=== PATIENT | male | born 1985 | race African-American/Black ===

== ENCOUNTER 2017-09-06 22:05 | Emergency (ER) | payer OTHER ==
[~2017-09-06] VITALS: Ht 180.3 cm; Wt 86.0 kg
[2017-09-07 01:00] LABS: HEMATOCRIT. 47.5 % (42.0-52.0); HEMOGLOBIN. 16.4 g/dL (14.0-18.0); MEAN CORPUSCULAR HEMOGLOBIN 30.3 pg (28.0-32.0); MEAN CORPUSCULAR VOLUME 87.8 fL (80.0-94.0); MEAN PLATELET VOLUME 8.1 fl (7.4-10.4); PLATELET 219 x1000/uL (130-400); RED BLOOD CELL COUNT 5.41 mill/uL (4.7-6.1); RED CELL DISTRIBUTION WIDTH 14.6 % (11.6-14.6)
[2017-09-07 01:00] LABS: CLARITY URINE CLEAR (CLEAR); COLOR URINE YELLOW (YELLOW); KETONES URINE NEGATIVE (NEGATIVE); LEUKOCYTE ESTERASE URINE NEGATIVE (NEGATIVE); NITRITE URINE NEGATIVE (NEGATIVE); OCCULT BLOOD URINE NEGATIVE (NEGATIVE); PROTEIN URINE NEGATIVE (NEGATIVE); SPECIFIC GRAVITY URINE 1.016 (1.005-1.030); UROBILINOGEN URINE 0.2 E.U./dL (0.2-1.0)
[2017-09-07 01:05] LABS: CHLORIDE 103 mEq/L (98-107)
[2017-09-07 01:21] LABS: PLATELET ESTIMATE NORMAL
[2017-09-07] MEDS ORDERED: SODIUM CHLORIDE 0.9% 1,000 ML IV ONE (03:48)
[2017-09-07] MEDS ORDERED: KETOROLAC 60MG/2ML VIAL IM STA (03:48)
[2017-09-07] MEDS ORDERED: KETOROLAC 30MG/ML VIAL IV STA (04:31)
[2017-09-07 04:35] VITALS: BP 125/82
== END 2017-09-07 05:33 | disposition home or self-care (01) ==
LOC: ER 22:05
DX: K04.7 Periapical abscess without sinus (principal); F17.210 Nicotine dependence, cigarettes, uncomplicated
CPT/HCPCS: 36415; 71045; 80053; 81003; 85025; 87070; 87430; 87804; 96361; 96374; 99285; J1885; J7030; Z7610